=== PATIENT | female | born 1940 | race Caucasian/White ===

== ENCOUNTER 2023-09-07 10:13 | Outpatient (AMB) | payer MEDICARE, OTHER, SELFPAY ==
--- NOTE | 2023-09-07 10:27 | MHC.OFFVIS ---
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 Has some memories issues and depression and would like to diagnose. Allergies penecillin Allergy (Mild, Uncoded 09/07/23 10:33) Rash HPI HPI Comments History of Present Illness Details 83 y/o female patient presents for new in-person visit for evaluation of cognitive impairment. Pt is accompanied by her daughter. 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 She has difficulty remembering names, also forgets what she tried to. Pt's can't remember her doctor's appointment or billing. She was really good at taking care of bills and fiances. Now her daughter write all events and billing day on the calendar and uses visual reminders. Also patient experiences difficulty writing check. She is independent ADLs and also has help for house work. Pt's daughter noticed patient's memory declines more over the last 6 months. Pt's son had kidney transplant, it was really big event, but patient forgot her son had kidney transplant. 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 She still drives locally. She started memantine 10 mg BID about three months ago. Pt reports unsteady gait with dizziness. Pt's daughter reports patient is not a good sleeper. She wakes up a lot in the middle of night, and having difficulty go back to sleep. Pt reports non refreshing sleep and daytime sleepiness. She is not physically active during daytime, but does 30 min exercise three times a week. [facility] Surgical History History of tonsillectomy History of knee replacement procedure of right knee History of hip surgery History of cataract surgery Family History (Updated 09/07/23 @ 10:37 by Jyoti Campbell CMA) Father Heart disease Stroke Sister Parkinson disease Review of Systems Const All systems reviewed & are unremarkable except as noted in HPI and below Physical Exam Vital Signs: Last Vital Signs Pulse 62 02/28/24 10:37 BP 132/80 09/07/23 10:37 Pulse Ox 96 09/07/23 10:37 Oxygen Delivery Method Room Air 09/07/23 10:37 BMI result Body Mass Index 24.1 Const General: cooperative Nutritional Appearance: average body habitus Orientation/consciousness: patient oriented x3 Resp Effort & Inspection: normal respiratory effort and able to speak in complete sentences Neuro General: patient oriented x3 and moves all extremities Cranial nerves: Yes CN's II-XII intact bilaterally Cognition (Neuro): normal cognition Motor exam (neuro): 5/5 motor strength present throughout, Pronator motor function not present and no tremor noted Coordination: ocmafo-kg-omns test normal Orientation What is the (year) (season) (date) (day) (month)?: year, season, date, day and month Where are we (state) (county) (town or city) (hospital) (floor)?: state, town or city, hospital/clinic and floor Registration Name of 3 unrelated objects clearly and slowly, then ask patient to repeat all 3 of them. (1st repeat determines score. Make sure they can repeat all three): object 1, object 2 and object 3 Attention & Calculation (CHOOSE ONE) Spell WORLD backwards (DLROW): 5 letters Recall Ask patient to repeat the 3 items from question #3.: object 1, object 2 and object 3 Language Show patient a wristwatch & ask what it is. Repeat for pencil.: watch and pencil Ask the patient to repeat the phrase 'No ifs, ands, or buts' after you.: correct Ask the patient to 'take a piece of paper with their right hand' 'fold paper in half' 'place paper on floor': take paper in right hand, fold paper in half and place paper on floor Print the sentence 'CLOSE YOUR EYES' on a piece. If patient actually closes eyes then score.: followed written direction Give patient a blank piece of paper & ask to write a sentence. Score if it contains a noun & verb.: sentence contains subject and verb Ask patient to copy figure of intersecting pentagons exactly. Score if all 10 angles & 2 intersects are included.: all 10 angles present & 2 are intersected Score Score: 29 Assessment & Plan Assessment & Plan (1) Memory loss or impairment: Code(s): R41.3 - Other amnesia (2) Sleeping difficulty: Code(s): G47.9 - Sleep disorder, unspecified Plan Pt did well on MMSE today, with good clock drawing. Will check labs for reversible causes of memory loss. Ordered brain MRI for forgetfulness, dizziness and unsteady gait. Advised patient to undergo in lab sleep study to assess sleep apnea. Will refer patient to neuropsychology evaluation. Orders: Orders Comprehensive Met. Panel 09/07/23 R26.81 - Unsteadiness on feet, R41.3 - Other amnesia, R42 - Dizziness and giddiness Complete Blood Count Auto Diff 09/07/23 R26.81 - Unsteadiness on feet, R41.3 - Other amnesia, R42 - Dizziness and giddiness RT PSG in-lab sleep study 09/07/23 G47.9 - Sleep disorder, unspecified, R06.83 - Snoring, R40.0 - Somnolence, R41.3 - Other amnesia MR head/brain wo con 09/07/23 R26.81 - Unsteadiness on feet, R41.3 - Other amnesia, R42 - Dizziness and giddiness TSH reflex Free T4 09/07/23 R26.81 - Unsteadiness on feet, R41.3 - Other amnesia, R42 - Dizziness and giddiness Erythrocyte Sedimentation Rate 09/07/23 R26.81 - Unsteadiness on feet, R41.3 - Other amnesia, R42 - Dizziness and giddiness Vitamin B12 and Folate 09/07/23 R26.81 - Unsteadiness on feet, R41.3 - Other amnesia, R42 - Dizziness and giddiness Vitamin D 25-OH (D2 and D3) 09/07/23 R26.81 - Unsteadiness on feet, R41.3 - Other amnesia, R42 - Dizziness and giddiness RPR Monitor reflex titer 09/07/23 R26.81 - Unsteadiness on feet, R41.3 - Other amnesia, R42 - Dizziness and giddiness Referrals Neuropsychiatry Referral R41.3 - Other amnesia Coding Level of Care Code New Pt Level 4 (18340) Diagnoses Memory loss or impairment R41.3 Sleeping difficulty G47.9
[2023-09-07 10:37] VITALS: BP 132/80; PULSE 62; O2SAT 96; BMI 24.1
== END 2023-09-07 11:39 | disposition home or self-care (01) ==
PROVIDERS: PCP Physician Assistant Medical; Visit Provider Nurse Practitioner Family
DX: R41.3 Other amnesia (principal); G47.9 Sleep disorder, unspecified
CPT/HCPCS: 99204

== ENCOUNTER → 2023-09-07 10:13 | Outpatient (BNVA) | payer MEDICARE, OTHER, SELFPAY | PROVIDERS: PCP Physician Assistant Medical; Visit Provider Nurse Practitioner Family | DX: R41.3 Other amnesia (principal); G47.9 Sleep disorder, unspecified | CPT/HCPCS: 99202 ==

== ENCOUNTER 2023-09-30 12:58 | Outpatient (REF) | payer MEDICARE, OTHER, SELFPAY ==
--- NOTE | ~2023-09-30 | MR_ITS ---
EXAMINATION: MR BRAIN WITHOUT CONTRAST CLINICAL INFORMATION: 83-year-old with amnesia. Self-reported memory loss, unsteady gait and dizziness. COMPARISON: None available. TECHNIQUE: MRI of the brain was obtained using routine sequences without contrast. FINDINGS: BRAIN VOLUME: There is emoowqhx-cf-dealmo generalized diffuse supratentorial brain parenchymal volume loss and nmgx-cl-qvbtlzhm generalized diffuse cerebellar volume loss with volume loss involving the midbrain. STRUCTURAL: No malformations. BRAIN AND MENINGES: DWI sequence demonstrates no restricted diffusion to suggest acute or subacute cerebral ischemia. Scattered small, subcentimeter foci of FLAIR/T2 signal hyperintensity are seen in the subcortical and deeper white matter of both cerebral hemispheres in addition to moderate confluent deep periventricular T2 hyperintensity consistent with chronic ischemic microangiopathy. 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 Gradient refocused imaging demonstrates no abnormal susceptibility-weighted signal loss to suggest hemorrhage, hemosiderin staining or abnormal mineralization. No extra-axial fluid collections, space-occupying process or mass effect are identified. VENTRICLES AND SUBARACHNOID SPACES: There is third and lateral ventriculomegaly, likely reflecting generalized volume loss. ORBITAL STRUCTURES: The visualized orbital structures are grossly unremarkable within the limitations of the study. The Gibbs index is 0.36 and a simplified callosal angle is approximately 84 degrees. These metrics are indeterminate for NPH. VASCULAR: Signal voids are noted in the visualized major intracranial vessels. OSSEOUS STRUCTURES, SINUSES/MASTOIDS, EXTRACRANIAL SOFT TISSUES: Osseous marrow signal intensity appears grossly within normal limits. Bilateral TMJ arthropathy is noted with C3-C4 disc degenerative change and spondylosis. Mild pansinus mucosal thickening. MR/MR head/brain wo con IMPRESSION: 1. Vvywgnzn-fr-ylcksn generalized diffuse supratentorial brain parenchymal volume loss and wbrt-lt-lybmwuia generalized diffuse cerebellar volume loss with volume loss involving the midbrain. 2. 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 3. Third and lateral ventriculomegaly, likely reflecting generalized volume loss, with simplified callosal angle and Gibbs index measurements, which are indeterminate for NPH. 4. Bilateral TMJ arthropathy. 5. Mild pansinus mucosal thickening.
== END 2023-09-30 12:59 | disposition home or self-care (01) ==
LOC: HO.MRI 12:58
PROVIDERS: PCP Physician Assistant Medical; Visit Provider Nurse Practitioner Family
DX: R41.3 Other amnesia (principal); R26.81 Unsteadiness on feet; R42 Dizziness and giddiness
CPT/HCPCS: 70551